=== PATIENT | female | born 1965 | race Caucasian/White ===

== ENCOUNTER → 2016-05-15 | Outpatient (CLI) | payer OTHER | LOC: FIMAGING 14:50 | DX: Z12.31 Encounter for screening mammogram for malignant neoplasm of breast (principal) | CPT/HCPCS: G0202 ==

== ENCOUNTER → 2017-07-18 | Outpatient (CLI) | payer OTHER | LOC: FIMAGING 11:39 | DX: Z12.31 Encounter for screening mammogram for malignant neoplasm of breast (principal) ==